=== PATIENT | male | born 1950 | race Caucasian/White ===

== ENCOUNTER → 2023-04-18 | Day surgery (SDC) | payer BC, MEDICARE ==
[2023-04-18] VITALS (9 sets, daily range): BP systolic 119–148; BP diastolic 47–55
[~2023-04-18] VITALS: Ht 180.3 cm; Wt 99.8 kg
[~2023-04-18] MED LIST: AMLODIPINE BESYL5 MG PO; CLOPIDOGREL75 MG PO; COZAAR25 M1 PO; DOXYCYCLINE HY100 M3 PO; ERTAPENEM1 GM IV; FUROSEMIDE20 M1 PO; FUROSEMIDE80 MG PO; JANUVIA100 MG PO; K-TAB10 MEQ PO; K-TAB20 MEQ PO; LEVEMIR100 UNIT/1 SC; LIPITOR40 MG PO; METOPROLOL SUCC50 M1 PO; OXYBUTYNIN5 MG PO; TAMSULOSIN HCL0.4 MG PO; TRAMADOL HCL50 MG PO; VANCO 1 GR1 GM/250 M IV; VITAMIN D350 MC2 PO; XARELTO10 MG PO
[2023-04-19 15:07] LABS: ACID FAST SPEC PROCESSING Tissue Grinding (.)
== END ==
LOC: SDC 04-16 11:00
PROVIDERS: ATTEND Podiatrist
DX: E11.621 Type 2 diabetes mellitus with foot ulcer (principal); M77.32 Calcaneal spur, left foot; I11.0 Hypertensive heart disease with heart failure; I50.9 Heart failure, unspecified; I25.10 Atherosclerotic heart disease of native coronary artery without angina pectoris; E78.00 Pure hypercholesterolemia, unspecified; F17.200 Nicotine dependence, unspecified, uncomplicated; Z98.890 Other specified postprocedural states

== ENCOUNTER → 2024-06-11 | Day surgery (SDC) | payer BC, MEDICARE ==
[~2024-06-11] VITALS: Ht 182.8 cm; Wt 106.6 kg
[~2024-06-11] MED LIST changes: +ACETAMINOPHEN 100 ML IV ONE; +BUPIVACAINE 0.5% 0 ML IV ONE; +DOXYCYCLINE MO100 MG PO; +Dexamethasone Sodium Phospha 4 MG/ML VIAL IV ONE; +Doxycycline Hyclate 100 MG CAP PO SCH; +JANUVIA50 MG PO; +LASIX40 MG PO; +LEVOFLOXACIN250 M2 PO; +LOPRESSOR25 MG PO; +Lactated Ringer's Solution 1,000 ML IV ONE; +Lidocaine Hydrochloride 5 ML VIAL IV ONE; +Ondansetron Hydrochloride 4 MG/2 ML VIAL IV ONE; +PLAVIX75 M1 PO; +PROPOFOL 200 MG/20 ML VIAL IV ONE; +RIVAROXABAN 10 MG TAB PO SCH; +SEVOFLURANE 250 ML BOT INH ONE; +Vancomycin Hydrochloride 1,000 MG VIAL IV ONE; +XARELTO2.5 MG PO; +ceFAZolin sodium/sodium chlor 20 ML IV ONE; +ePHEDrine Sulfate 25 MG/5 ML SYRINGE IV ONE; +fentaNYL CITRATE 100 MCG/2 ML VIAL IV ONE
[2024-06-11 07:20] VITALS: BP 130/64
[2024-06-11 09:11] VITALS: BP 141/59
[2024-06-11 09:26] VITALS: BP 150/44
[2024-06-11 09:41] VITALS: BP 170/62
[2024-06-11 09:56] VITALS: BP 168/70
[2024-06-11 10:11] VITALS: BP 165/68
[2024-06-12 13:07] LABS: ACID FAST SPEC PROCESSING Tissue Grinding (.)
[2024-06-12 13:07] LABS: ACID FAST SPEC PROCESSING Tissue Grinding (.)
[2024-06-12 13:07] LABS: ACID FAST SPEC PROCESSING Tissue Grinding (.)
[2024-06-12 13:07] LABS: ACID FAST SPEC PROCESSING Tissue Grinding (.)
== END | disposition home or self-care (01) ==
LOC: SDC 06-06 11:00
PROVIDERS: ATTEND Podiatrist
DX: S91.302A Unspecified open wound, left foot, initial encounter (principal); T84.84XA Pain due to internal orthopedic prosthetic devices, implants and grafts, initial encounter; M86.8X6 Other osteomyelitis, lower leg; I13.0 Hypertensive heart and chronic kidney disease with heart failure and stage 1 through stage 4 chronic kidney disease, or unspecified chronic kidney disease; E11.22 Type 2 diabetes mellitus with diabetic chronic kidney disease; N18.9 Chronic kidney disease, unspecified; I50.32 Chronic diastolic (congestive) heart failure; I25.10 Atherosclerotic heart disease of native coronary artery without angina pectoris; M19.90 Unspecified osteoarthritis, unspecified site; I25.2 Old myocardial infarction; E78.5 Hyperlipidemia, unspecified; F10.90 Alcohol use, unspecified, uncomplicated; Z90.89 Acquired absence of other organs; Z98.890 Other specified postprocedural states; Z87.891 Personal history of nicotine dependence; Z91.041 Radiographic dye allergy status; Z79.899 Other long term (current) drug therapy; Z82.49 Family history of ischemic heart disease and other diseases of the circulatory system; X58.XXXA Exposure to other specified factors, initial encounter; Y93.89 Activity, other specified; Y92.89 Other specified places as the place of occurrence of the external cause; Y99.8 Other external cause status

== ENCOUNTER → 2025-07-08 | Day surgery (SDC) | payer MEDICARE ==
[~2025-07-08] VITALS: Ht 182.8 cm; Wt 99.8 kg
[~2025-07-08] MED LIST changes: -ACETAMINOPHEN 100 ML IV ONE; +BUMETANIDE2 MG PO; -BUPIVACAINE 0.5% 0 ML IV ONE; +CARAFATE1 G1 PO; +Cefepime Hydrochloride 2 GM in SODIUM CHLORIDE 0.9% 50 ML IV ONE; +DALVANCE500 MG IV; +DAPTOMYCIN350 MG IV; -Dexamethasone Sodium Phospha 4 MG/ML VIAL IV ONE; -Doxycycline Hyclate 100 MG CAP PO SCH; +ELIQUIS2.5 M1 PO; +GLYCOPYRROLATE IN WATER/PF 0.4 MG/2 ML SYRINGE IV ONE; +Imdur SA60 MG PO; +KLOR-CON M2020 ME1 PO; +LINEZOLID 300 ML IV ONE; +Lidocaine Hydrochloride 2% 5 ML SDV IV ONE; -Lidocaine Hydrochloride 5 ML VIAL IV ONE; +OMEPRAZOLE40 MG PO; -Ondansetron Hydrochloride 4 MG/2 ML VIAL IV ONE; -RIVAROXABAN 10 MG TAB PO SCH; -SEVOFLURANE 250 ML BOT INH ONE; +TOPROL XL50 M1 PO; +TYLENOL EXTRA500 M2 PO; -Vancomycin Hydrochloride 1,000 MG VIAL IV ONE; +Vancomycin Hydrochloride 1,000 MG VIAL ONE; +ZYVOX600 MG PO; +ceFAZolin sodium/sodium chlor 0 ML IV ONE; -ceFAZolin sodium/sodium chlor 20 ML IV ONE; -ePHEDrine Sulfate 25 MG/5 ML SYRINGE IV ONE; -fentaNYL CITRATE 100 MCG/2 ML VIAL IV ONE; +fentaNYL CITRATE/PF 50 MCG/ML SYRINGE IV PRN; +fentaNYL CITRATE/PF 50 MCG/ML SYRINGE ONE
[2025-07-08 09:15] VITALS: BP 158/54
[2025-07-08 12:34] VITALS: BP 144/59
[2025-07-08 12:49] VITALS: BP 149/60
[2025-07-08 13:04] VITALS: BP 159/72
[2025-07-08 13:34] VITALS: BP 156/69
[2025-07-09 15:07] LABS: ACID FAST SPEC PROCESSING Tissue Grinding (.)
[2025-07-09 15:07] LABS: ACID FAST SPEC PROCESSING Tissue Grinding (.)
[2025-07-09 15:07] LABS: ACID FAST SPEC PROCESSING Tissue Grinding (.)
[2025-07-09 15:07] LABS: ACID FAST SPEC PROCESSING Tissue Grinding (.)
[2025-07-09 15:07] LABS: ACID FAST SPEC PROCESSING Tissue Grinding (.)
[2025-07-09 15:07] LABS: ACID FAST SPEC PROCESSING Tissue Grinding (.)
== END | disposition home or self-care (01) ==
LOC: SDC 07-06 10:15
PROVIDERS: ATTEND Podiatrist
DX: M86.8X7 Other osteomyelitis, ankle and foot (principal); E11.621 Type 2 diabetes mellitus with foot ulcer; T84.84XA Pain due to internal orthopedic prosthetic devices, implants and grafts, initial encounter; I25.10 Atherosclerotic heart disease of native coronary artery without angina pectoris; E78.5 Hyperlipidemia, unspecified; I25.2 Old myocardial infarction; E11.22 Type 2 diabetes mellitus with diabetic chronic kidney disease; I13.0 Hypertensive heart and chronic kidney disease with heart failure and stage 1 through stage 4 chronic kidney disease, or unspecified chronic kidney disease; N18.9 Chronic kidney disease, unspecified; I50.30 Unspecified diastolic (congestive) heart failure; K21.9 Gastro-esophageal reflux disease without esophagitis; Y83.9 Surgical procedure, unspecified as the cause of abnormal reaction of the patient, or of later complication, without mention of misadventure at the time of the procedure; Z79.899 Other long term (current) drug therapy; Z98.890 Other specified postprocedural states; Z87.891 Personal history of nicotine dependence